=== PATIENT | female | born 1995 | race African-American/Black ===

== ENCOUNTER 2024-08-10 22:11 | Emergency (ER) | payer OTHER ==
[~2024-08-10] VITALS: Ht 157.5 cm; Wt 51.3 kg
[2024-08-11 02:15] VITALS: PULSE 78; RESP 18; TEMP 98.9; O2SAT 98
== END 2024-08-11 02:40 | disposition home or self-care (01) ==
LOC: FSED 23:08
DX: R50.9 Fever, unspecified (principal); R31.9 Hematuria, unspecified; M54.50 Low back pain, unspecified; E86.0 Dehydration; E86.1 Hypovolemia
CPT/HCPCS: 74176; 81003; 99283